=== PATIENT | male | born 1965 | race Caucasian/White ===

== ENCOUNTER 2021-12-18 19:55 | Emergency (ER) | payer OTHER ==
[2021-12-18 20:00] VITALS: BP 131/83; PULSE 76; RESP 18; TEMP 98.4; BMI 19.9
[2021-12-18 22:06] LABS: HEMATOCRIT 38.6 % (35.4-49); HEMOGLOBIN 13.2 GM/dL (11.7-16.9); MCH 31.2 pg (25.7-33.7); MCHC 34.3 g/dl (32.0-35.9); MEAN PLT VOLUME 6.7 fl (7.5-11.1); PLATELET COUNT 249 10^3/uL (134-434); RBC 4.24 M/mm3 (4.00-5.60); RDW 13.8 % (11.9-15.9); WHITE BLOOD COUNT 9.4 K/mm3 (4.0-10.0)
[2021-12-18 22:13] LABS: INR 0.98 (0.83-1.09); PROTHROMBIN TIME (PATIENT) 11.3 SEC (9.7-13.0)
[2021-12-18 22:15] LABS: ACTIVATED PTT 29.8 SECONDS (25.2-36.5)
[2021-12-18 22:26] LABS: ALBUMIN 3.7 g/dl (3.4-5.0); BLOOD UREA NITROGEN 16.2 mg/dL (7-18)
[2021-12-18 22:29] LABS: CREATININE 0.9 mg/dL (0.55-1.3)
[2021-12-18 22:30] LABS: BILIRUBIN,TOTAL 0.5 mg/dL (0.2-1); TOT PROT 7.3 g/dl (6.4-8.2)
[2021-12-18] MEDS ORDERED: ACETAMINOPHEN 325 MG TABLET (FP) PO ONE (23:59)
[2021-12-19] MEDS ORDERED: ACETAMINOPHEN 325 MG TABLET (FP) ONE (00:03)
== END 2021-12-19 00:05 | disposition home or self-care (01) ==
LOC: JER 19:55
DX: M79.651 Pain in right thigh (principal)
CPT/HCPCS: 36415; 80053; 85027; 85610; 85730; 93970-TC; 99284-25